=== PATIENT | male | born 1980 | race African-American/Black ===

== ENCOUNTER 2021-12-05 05:35 | Emergency (ER) | payer SELFPAY ==
[2021-12-05] MEDS ORDERED: Ketorolac Tromethamine 30 MG/ML VIAL ONE (06:01)
== END 2021-12-05 06:00 | disposition home or self-care (01) ==
LOC: CSHERS 05:35
DX: K02.9 Dental caries, unspecified (principal); F17.210 Nicotine dependence, cigarettes, uncomplicated
CPT/HCPCS: 96372; 99282; J1885

== ENCOUNTER 2022-05-03 15:10 | Inpatient (IN) | payer SELFPAY ==
[~2022-05-03 15:10] MED LIST: Iopamidol 300 61% 100 ML VIAL FS ONE
[2022-05-03] MEDS ORDERED: Ketorolac Tromethamine 30 MG/ML VIAL ONE (15:39)
[2022-05-03 15:56] LABS: Hemoglobin 14.5 g/dL (13.5-17.5); Mean Corpuscular HGB CONC 37.5 g/dL (32.0-36.0); Mean Corpuscular Hemoglobin 30.1 pg (27.0-33.0); Mean Corpuscular Volume 80.3 fl (81.2-95.1); Mean Platelet Volume 9.9 fl (7.4-10.4); Platelet Count 260 10x3/uL (150-450); RBC Distribution Width 12.8 % (11.5-14.5); Red Blood Cell (RBC) Count 4.82 10x6/uL (4.32-5.72)
[2022-05-03 16:03] LABS: Anion Gap 13 mmol/L (10-20); BUN (Urea Nitrogen) 11 mg/dL (8.9-20.6); Bilirubin, Total 0.5 mg/dL (0.2-1.2); Calc. Creatinine Clearance 0 mL/min (70-130); Calcium 9.3 mg/dL (7.8-10.44); Carbon Dioxide 26 mmol/L (22-29); Chloride 105 mmol/L (98-107); Estimated GFR 107; Glucose 108 mg/dL (70-105); Potassium 4.1 mmol/L (3.5-5.1); Protein, Total 7.1 g/dL (6.0-8.3); Sodium 140 mmol/L (136-145)
[2022-05-03 16:04] LABS: ALT (SGPT) 11 U/L (8-55); AST (SGOT) 17 U/L (5-34); Albumin 4.1 g/dL (3.5-5.0); Alkaline Phosphatase 87 U/L (40-110)
[2022-05-03 16:31] LABS: Eosinophils 1 % (0-10); Lymphocytes 37 % (21-51); Monocytes 4 % (0-10); Neutrophil 57 % (42-75); Reactive Lymphocytes 1 % (0-10)
[2022-05-03 16:32] LABS: MDiff Complete? YES; Platelet Morphology Comment Appears Adequate; RBC Morphology Normal
[2022-05-03] MEDS ORDERED: Piperacillin/Tazobactam 4.5 GM VIAL ONE (20:02)
[2022-05-03] MEDS ORDERED: Aspirin 325 MG TAB PO SCH (22:00)
[2022-05-03] MEDS ORDERED: Enoxaparin Sodium 40 MG/0.4 ML SYRINGE SC SCH (22:00)
[2022-05-03] MEDS ORDERED: Aspirin Chewable 81 MG TAB ONE (22:18)
[2022-05-03] MEDS ORDERED: Enoxaparin Sodium 40 MG/0.4 ML SYRINGE ONE (22:19)
[2022-05-03] MEDS: Potassium Chloride 20 MEQ in Lactated Ringer's 1,000 ML IV SCH (22:29)
[2022-05-03 22:42] LABS: Bilirubin Neg (Negative); Blood, Urine Negative (Negative); Clarity Clear (Clear); Glucose, Urine (Dipstick) Normal (Negative); Ketone, Urine Negative (Negative); Leukocyte 25 (Negative); Nitrite Negative (Negative); Protein, Urine (Dipstick) 30 mg/dl (Neg-Trace); Specific Gravity, Urine 1.015 (1.005-1.030)
[2022-05-03 22:47] LABS: Bacteria/HPF Rare-Few HPF (None Seen); RBC/HPF 0-3 HPF (0-3); Squamous Epithelial 0-3 HPF (0-3); WBC/HPF 0-3 HPF (0-3)
[2022-05-03 23:00] LABS: Magnesium 1.7 mg/dL (1.6-2.6)
[2022-05-03 23:01] LABS: Troponin I Less than 0.010 ng/mL (< 0.028)
[2022-05-03] MEDS ORDERED: Piperacillin/Tazobactam 3.375 GM VIAL ONE (23:58)
[2022-05-04 03:47] LABS: #Basophils 0.1 10x3/uL (0.0-0.2); #Eosinphils 0.2 10x3/uL (0.0-0.5); #Monocytes 0.8 10x3/uL (0.0-1.1); #Neutrophils 4.7 10x3/uL (1.5-8.4); %Basophils 0.8 % (0.0-2.0); %Eosinophils 2.2 % (0.0-6.0); %Lymphocytes 44.4 % (18.0-47.0); %Monocytes 7.9 % (0.0-10.0); %Neutrophils 44.4 % (40.0-75.0); Hemoglobin 13.7 g/dL (13.5-17.5); Mean Corpuscular Hemoglobin 29.8 pg (27.0-33.0); Mean Corpuscular Volume 80.6 fl (81.2-95.1); Mean Platelet Volume 9.5 fl (7.4-10.4); Platelet Count 236 10x3/uL (150-450); RBC Distribution Width 12.8 % (11.5-14.5); Red Blood Cell (RBC) Count 4.59 10x6/uL (4.32-5.72); White Blood Cell (WBC) Count 10.6 10x3/uL (3.5-10.5)
[2022-05-04 04:00] LABS: Anion Gap 11 mmol/L (10-20); BUN (Urea Nitrogen) 10 mg/dL (8.9-20.6); Calc. Creatinine Clearance 0 mL/min (70-130); Calcium 8.3 mg/dL (7.8-10.44); Carbon Dioxide 25 mmol/L (22-29); Cardiac Risk 3.1 (Less than 4.5); Chloride 108 mmol/L (98-107); Cholesterol 132 mg/dl (< 200 Desired); Estimated GFR 109; Glucose 97 mg/dL (70-105); HDL Cholesterol 43 mg/dL (>60 Neg Risk); LDL Cholesterol, Calculated 72 mg/dL; Potassium 3.9 mmol/L (3.5-5.1); Sodium 140 mmol/L (136-145); Triglycerides 87 mg/dL (Less than 150)
[2022-05-04 04:02] LABS: SARS-CoV-2 NAA Rapid Test Not Detected (NotDetected)
[2022-05-04] MEDS ORDERED: Piperacillin/Tazobactam 3.375 GM VIAL ONE (08:13)
[2022-05-04] MEDS: Piperacillin/Tazobactam 3.375 GM in Sodium Chloride 0.9% 100 ML IVPB SCH ×3 (08:25→17:50)
[2022-05-04] MEDS ORDERED: Aspirin 300 MG Suppository PR SCH (09:00)
[2022-05-04] MEDS: Aspirin 81 mg Enteric Coated Tablet PO SCH (12:58)
[2022-05-04 14:31] VITALS: BMI 34.4
[2022-05-04] MEDS ORDERED: Morphine 2 MG/ML VIAL ONE (16:38)
[2022-05-04] MEDS: Potassium Chloride 20 MEQ in Lactated Ringer's 1,000 ML IV SCH (17:06)
[2022-05-04] MEDS ORDERED: Morphine 4 MG/ML VIAL SLOW IVP SCH (18:30)
[2022-05-04] MEDS: Enoxaparin Sodium 40 MG/0.4 ML SYRINGE SC SCH (20:53)
[2022-05-05] MEDS: Piperacillin/Tazobactam 3.375 GM in Sodium Chloride 0.9% 100 ML IVPB SCH ×4 (01:03→23:51)
[2022-05-05] MEDS: Potassium Chloride 20 MEQ in Lactated Ringer's 1,000 ML IV SCH ×3 (06:42→17:10)
[2022-05-05] MEDS ORDERED: Bupivacaine 0.25% HCL 30 ML VIAL ONE (10:22)
[2022-05-05] MEDS ORDERED: EPINEPHrine 1 MG/ML AMP ONE (10:23)
[2022-05-05] MEDS: Aspirin 81 mg Enteric Coated Tablet PO SCH (10:51)
[2022-05-05] MEDS ORDERED: Succinylcholine 200 MG/10 ml SYRINGE FS ONE (11:09)
[2022-05-05] MEDS ORDERED: PROPOFOL 20 ML ONE (11:09)
[2022-05-05] MEDS ORDERED: Lidocaine 1% PF 5 ML VIAL ONE (11:09)
[2022-05-05] MEDS ORDERED: Ondansetron PF 4 MG/2 ML Vial ONE (11:09)
[2022-05-05] MEDS ORDERED: Fentanyl 100 MCG/2 ML VIAL ONE ×2 (11:09→14:11)
[2022-05-05] MEDS ORDERED: Ketamine 50 MG/ML (10ML VIAL) ONE (12:41)
[2022-05-05] MEDS ORDERED: SUGAMMADEX SODIUM 200 MG/2 ML VIAL ONE (12:42)
[2022-05-05] MEDS ORDERED: Midazolam HCl 2 mg/2 ml Vial ONE (12:54)
[2022-05-05] MEDS ORDERED: Dexamethasone 20 MG/5 ML VIAL ONE (13:03)
[2022-05-05] MEDS ORDERED: Metoclopramide HCl 10 MG/2 ML VIAL ONE (13:35)
[2022-05-05] MEDS ORDERED: Glycopyrrolate 0.2 MG/ML 5 ML SYRINGE ONE (13:44)
[2022-05-05] MEDS ORDERED: Meperidine HCl/PF 25 MG/ML VIAL ONE (13:47)
[2022-05-05] MEDS ORDERED: Labetalol HCl 100 MG/20 ML VIAL ONE (14:03)
[2022-05-05] MEDS ORDERED: HYDROmorphone 0.5 MG/0.5 ML SYRINGE ONE (14:11)
[2022-05-05] MEDS ORDERED: Morphine 4 MG/ML VIAL SLOW IVP SCH (16:15)
[2022-05-05] MEDS ORDERED: HYDROmorphone 0.5 MG/0.5 ML SYRINGE SLOW IVP SCH (20:30)
[2022-05-05] MEDS: Enoxaparin Sodium 40 MG/0.4 ML SYRINGE SC SCH (20:34)
[2022-05-06 05:14] LABS: #Monocytes 1.3 10x3/uL (0.0-1.1); #Neutrophils 13.7 10x3/uL (1.5-8.4); %Basophils 0.2 % (0.0-2.0); %Eosinophils 0.1 % (0.0-6.0); %Lymphocytes 18.6 % (18.0-47.0); %Monocytes 6.8 % (0.0-10.0); Hemoglobin 13.7 g/dL (13.5-17.5); Mean Corpuscular HGB CONC 37.4 g/dL (32.0-36.0); Mean Corpuscular Hemoglobin 29.8 pg (27.0-33.0); Mean Corpuscular Volume 79.7 fl (81.2-95.1); Mean Platelet Volume 9.7 fl (7.4-10.4); Platelet Count 242 10x3/uL (150-450); RBC Distribution Width 12.6 % (11.5-14.5); Red Blood Cell (RBC) Count 4.59 10x6/uL (4.32-5.72); White Blood Cell (WBC) Count 18.5 10x3/uL (3.5-10.5)
[2022-05-06 05:29] LABS: ALT (SGPT) 18 U/L (8-55); AST (SGOT) 34 U/L (5-34); Albumin 3.7 g/dL (3.5-5.0); Alkaline Phosphatase 72 U/L (40-110); Anion Gap 12 mmol/L (10-20); BUN (Urea Nitrogen) 10 mg/dL (8.9-20.6); Bilirubin, Total 0.8 mg/dL (0.2-1.2); Calc. Creatinine Clearance 164 mL/min (70-130); Calcium 8.5 mg/dL (7.8-10.44); Carbon Dioxide 25 mmol/L (22-29); Chloride 104 mmol/L (98-107); Estimated GFR 110; Globulin 2.7 g/dL (2.4-3.5); Glucose 99 mg/dL (70-105); Potassium 3.9 mmol/L (3.5-5.1); Protein, Total 6.4 g/dL (6.0-8.3); Sodium 137 mmol/L (136-145)
[2022-05-06] MEDS: Piperacillin/Tazobactam 3.375 GM in Sodium Chloride 0.9% 100 ML IVPB SCH (08:14)
[2022-05-06 08:16] VITALS: BP 118/72; TEMP 98.2
[2022-05-06] MEDS: Aspirin 81 mg Enteric Coated Tablet PO SCH (08:16)
[2022-05-06] MEDS ORDERED: Acetaminophen 500 MG TAB PO SCH (09:00)
== END 2022-05-06 09:59 | disposition home or self-care (01) | DRG 419 ==
LOC: CSHERS 15:10 → INTOOBSV 21:29 → CSHERHOLD 21:29 → CSHTELE 05-04 14:44 → OBSVTOIN 05-05 08:54
PROVIDERS: ADMIT Family Medicine; ATTEND Internal Medicine
PROC: 0FT44ZZ Resection of Gallbladder, Percutaneous Endoscopic Approach (ICD-10-PCS; principal; 2022-05-05)
DX: K80.00 Calculus of gallbladder with acute cholecystitis without obstruction (principal); Z20.822 Contact with and (suspected) exposure to COVID-19; F17.210 Nicotine dependence, cigarettes, uncomplicated; F12.10 Cannabis abuse, uncomplicated; G43.909 Migraine, unspecified, not intractable, without status migrainosus; R07.9 Chest pain, unspecified; Z71.6 Tobacco abuse counseling; Z79.82 Long term (current) use of aspirin
CPT/HCPCS: 36415; 71045; 74177; 76705; 78227; 80048; 80053; 80061; 81003; 81015; 83735; 84484; 85025; 88304; 93005; 93010; 93306; 96365; 96372; 96375; 96376; A9537; C1889; G0378; J0171; J1100; J1170; J1650; J1885; J2175; J2250; J2270; J2405; J2543; J2704; J2765; J3010; J3475; J3480; J3490; J7120; Q9967; S0020; U0002

== ENCOUNTER 2023-09-09 09:41 | Emergency (ER) | payer SELFPAY ==
[2023-09-09] MEDS ORDERED: Ibuprofen 200 MG TAB ONE (10:57)
== END 2023-09-09 11:02 | disposition home or self-care (01) ==
LOC: CSHERS 09:41
DX: M79.672 Pain in left foot (principal); F17.210 Nicotine dependence, cigarettes, uncomplicated; W45.0XXA Nail entering through skin, initial encounter